=== PATIENT | female | born 1985 | race Caucasian/White ===

== ENCOUNTER 2024-12-04 11:01 | Emergency (ER) | payer MEDICAID ==
[2024-12-04 12:08] LABS: BASOPHILS ABSOLUTE AUTO 0.04 K/uL (0.00-0.10); BASOPHILS PERCENT AUTO 0.8 % (0.1-1.3); EOSINOPHILS ABSOLUTE AUTO 0.07 K/uL (0.00-0.40); EOSINOPHILS PERCENT AUTO 1.3 % (0.0-5.4); HEMATOCRIT 38.1 % (34.3-46.0); IMMATURE GRAN PERCENT AUTO 0.4 % (0.0-0.7); LYMPHOCYTES ABSOLUTE AUTO 1.83 K/uL (0.8-3.3); LYMPHOCYTES PERCENT AUTO 34.8 % (11.4-47.7); MEAN CORPUSCULAR HEMOGLOBIN 29.9 pg (31.6-35.5); MEAN CORPUSCULAR HGB CONC 34.1 g/dL (31.6-35.5); MEAN CORPUSCULAR VOLUME 87.6 fL (81.4-99.0); MONOCYTES ABSOLUTE AUTO 0.41 K/uL (0.20-0.90); MONOCYTES PERCENT AUTO 7.8 % (3.3-12.6); NEUTROPHILS ABSOLUTE AUTO 2.89 K/uL (1.0-7.6); NEUTROPHILS PERCENT AUTO 54.9 % (40.0-78.1); PLATELET COUNT,PLT 296 K/uL (130-375); RED BLOOD CELL COUNT 4.35 M/uL (3.77-5.24); WHITE BLOOD CELL COUNT,WBC 5.3 K/uL (3.2-11.0)
[2024-12-04 12:11] LABS: IMMATURE GRAN ABSOLUTE AUTO 0.02 K/uL (0.00-0.23)
[2024-12-04 12:30] LABS: A/G RATIO 0.9 (1.2-2.2); ALANINE AMINOTRANSFERASE,ALT 20 U/L (12-78); ALBUMIN 3.6 g/dL (3.4-5.0); ALKALINE PHOSPHATASE 80 U/L (46-116); ANION GAP 9.4 mmol/L (5.0-14.0); ASPARTATE AMNIOTRANSFERASE,AST 14 U/L (15-37); BILIRUBIN TOTAL 0.5 mg/dL (0.2-1.0); BLOOD UREA NITROGEN,BUN 8 mg/dL (7-18); CALCIUM 8.8 mg/dL (8.5-10.1); CARBON DIOXIDE,CO2 28 mmol/L (21-32); CHLORIDE,CL 104 mmol/L (100-108); CREATININE 0.8 mg/dL (0.6-1.0); EST CRCL DRUG DOSING (CG) 83.27 mL/min; ESTIMATED GFR 95 mL/min (>60); GLUCOSE RANDOM 94 mg/dL (74-106); POTASSIUM,K 4.3 mmol/L (3.6-5.2); PROTEIN TOTAL,TP 7.7 g/dL (6.4-8.2); SODIUM,NA 141 mmol/L (140-148)
[2024-12-04] MEDS: Sodium Chloride 0.9% 10 ML Syringe FLUSH PRN ×2 (12:34→12:40)
[2024-12-04] MEDS: Sodium Chloride 0.9% 1,000 ML IV STA (12:39)
[2024-12-04] MEDS: Sodium Chloride 0.9% 80 ML IV ONE (12:40)
[2024-12-04] MEDS: Iopamidol 612 MG/ML 100 ML Bottle IV PRN (12:40)
[2024-12-04] MEDS: fentaNYL 100 MCG/2 ML SDV IVPUSH ONE (12:40)
[2024-12-04] MEDS: Ondansetron 4 MG/2 ML SDV IVPUSH ONE (12:40)
[2024-12-04 13:36] LABS: APPEARANCE,URINE CLEAR (CLEAR); BILIRUBIN,URINE NEGATIVE (NEGATIVE); COLOR,URINE YELLOW (YELLOW); GLUCOSE,URINE NEGATIVE (NEGATIVE); KETONES,URINE NEGATIVE (NEGATIVE); LEUKOCYTE ESTERASE,URINE NEGATIVE (NEGATIVE); NITRITE,URINE NEGATIVE (NEGATIVE); OCCULT BLOOD,URINE SMALL (NEGATIVE); PH,URINE 6.5 (5.0-8.0); PROTEIN,URINE NEGATIVE (NEGATIVE); UROBILINOGEN,URINE 0.2 EU/dL (0.2-1.0)
[2024-12-04 13:44] LABS: AMORPHOUS SEDIMENT,URINE RARE; BACTERIA,URINE RARE; EPITHELIAL CELLS,URINE RARE; MUCUS,URINE NOT SEEN; WBC,URINE NOT SEEN (0-5)
== END 2024-12-04 16:47 | disposition home or self-care (01) ==
LOC: JP.ED 11:01
DX: R10.11 Right upper quadrant pain (principal); M54.9 Dorsalgia, unspecified; R11.0 Nausea; E03.9 Hypothyroidism, unspecified; Z90.49 Acquired absence of other specified parts of digestive tract; Z79.890 Hormone replacement therapy; Z79.899 Other long term (current) drug therapy
CPT/HCPCS: 36415; 74177; 76705; 80053; 81001; 83605; 84703; 85025; 96361; 96374; 96375; 99284; J2405; J3010; J7030; Q9967

== ENCOUNTER 2024-12-06 12:19 | Day surgery (SDC) | payer MEDICAID ==
[~2024-12-06 12:19] MED LIST: HYDROmorphone 1 MG/ML Syringe IVPUSH PRN; Ondansetron 4 MG/2 ML SDV IVPUSH PRN
[2024-12-06] MEDS ORDERED: fentaNYL 250 MCG/5 ML SDV ONE (12:20)
[2024-12-06] MEDS ORDERED: Ondansetron 4 MG/2 ML SDV ONE (12:22)
[2024-12-06] MEDS ORDERED: Dexamethasone 4 MG/ML SDV ONE (12:22)
[2024-12-06] MEDS ORDERED: Propofol 200 MG/20 ML SDV ONE (12:22)
[2024-12-06] MEDS ORDERED: Rocuronium 50 MG/5 ML Vial ONE (12:22)
[2024-12-06] MEDS ORDERED: Neostigmine Methylsulfate 10 MG/10 ML MDV ONE (12:22)
[2024-12-06] MEDS ORDERED: Glycopyrrolate 0.2 MG/ML 5 ML MDV ONE (12:22)
[2024-12-06] MEDS ORDERED: Succinylcholine 200 MG/10 ML MDV ONE (12:22)
[2024-12-06] MEDS: Lactated Ringers 1,000 ML IV SCH (12:56)
[2024-12-06] MEDS: Scopalamine 1mg/3day Transdermal Patch TOP SCH (13:14)
[2024-12-06] MEDS ORDERED: ceFAZolin 1 GM Vial ONE (13:33)
[2024-12-06] MEDS ORDERED: Sodium Chloride 0.9% 10 ML ONE (13:33)
[2024-12-06] MEDS: Bupivacaine 0.25%/EPINEPHrine 1:200,000 30 ML SDV ONE (14:06)
[2024-12-06] MEDS: Ondansetron 4 MG/2 ML SDV IVPUSH ONE (14:49)
[2024-12-06] MEDS ORDERED: oxyCODONE 5 MG Tab PO ONE (15:47)
== END 2024-12-06 17:12 | disposition home or self-care (01) ==
LOC: JP.SDS 12:19
PROVIDERS: ATTEND Surgery
DX: K80.10 Calculus of gallbladder with chronic cholecystitis without obstruction (principal); E03.9 Hypothyroidism, unspecified; E66.01 Morbid (severe) obesity due to excess calories; Z79.890 Hormone replacement therapy; Z79.899 Other long term (current) drug therapy
CPT/HCPCS: 47562; A9270; J0330; J0690; J1100; J1596; J2405; J2704; J2710; J3010; J7120; 36415; 80053; 81001; 81025; 83690; 85025; 88304; 99204; J3490

== ENCOUNTER 2025-05-08 10:35 | Emergency (ER) | payer MEDICAID ==
[2025-05-08] MEDS: Ketorolac 30 MG/ML SDV IVPUSH ONE (12:21)
[2025-05-08] MEDS: diphenhydrAMINE 50 MG/ML SDV IVPUSH ONE (12:23)
[2025-05-08] MEDS: Sodium Chloride 0.9% 10 ML Syringe FLUSH PRN (12:25)
[2025-05-08 14:13] LABS: PROTEIN,CSF 20.3 mg/dL (15-45)
[2025-05-08 14:33] LABS: APPEARANCE CSF CLEAR (CLEAR); COLOR,CSF COLORLESS (COLORLESS); MONONUCLEAR, CSF 100 % (54-100); POLYMORPHONUCLEAR, CSF 0 % (0-7); RBC,CSF 7 /ul (0-0); TUBE NUMBER,CSF 3; TUBE VOLUME,CSF 1 mls; WBC,CSF 2 /ul (0-5)
[2025-05-08] MEDS: Dexamethasone 4 MG/ML SDV IVPUSH ONE (14:54)
== END 2025-05-08 16:15 | disposition home or self-care (01) ==
LOC: JP.ED 10:35
DX: A84.9 Tick-borne viral encephalitis, unspecified (principal); E03.9 Hypothyroidism, unspecified; Z79.890 Hormone replacement therapy; Z79.899 Other long term (current) drug therapy; Z86.16 Personal history of COVID-19; Z90.49 Acquired absence of other specified parts of digestive tract
CPT/HCPCS: 36415; 62270; 70450; 82945; 83605; 84157; 86140; 87070; 87205; 87426; 89050; 96365; 96375; 99283; 99284; J1100; J1200; J1630; J1790; J1885; J3490; J7030